=== PATIENT | male | born 1990 | race Caucasian/White ===

== ENCOUNTER 2017-11-11 21:02 | Emergency (ER) | payer OTHER ==
[2017-11-11 21:13] VITALS: BMI 35.2
[2017-11-11 21:16] VITALS: O2SAT 99
--- NOTE | 2017-11-11 21:25 | ED PDOC ---
HPI: General Adult Time Seen by Provider: 11/11/17 21:20 Chief Complaint (Nursing): Bite Chief Complaint (Provider): Dog Bite History Per: Patient History/Exam Limitations: no limitations Onset/Duration Of Symptoms: Hrs (x1) Current Symptoms Are (Timing): Still Present Additional Complaint(s): Alberto Nicholas is a 27 year old male with no past medical history who is presenting to the ED for evaluation of right hand, s/p dog bite that occurred one hour prior to arrival. Patient states that a strangers dog bit him and did not get information regarding the dog. He reports that his last tetanus shot was 4-5 years ago. Patient offers no other medical complaints at this time. PMD: none provided Past Medical History Reviewed: Historical Data, Nursing Documentation, Vital Signs Vital Signs: Last Vital Signs Temp 98 F 11/11/17 23:49 Pulse 70 11/11/17 23:49 Resp 18 11/11/17 23:49 BP 129/78 11/11/17 23:49 Pulse Ox 99 11/12/17 15:03 - Medical History PMH: No Chronic Diseases - Surgical History Surgical History: No Surg Hx - Family History Family History: States: Unknown Family Hx - Home Medications Home Medications: Ambulatory Orders Medication Instructions Recorded Benzonatate [Tessalon Perles] 100 mg PO TID #20 sgl 08/25/17 Cetirizine HCl [Zyrtec] 10 mg PO DAILY #20 capsule 08/25/17 Ibuprofen [Motrin] 600 mg PO Q6H #20 tab 08/25/17 Ciprofloxacin HCl [Cipro] 500 mg PO BID #10 tablet 11/11/17 Clindamycin [Cleocin] 1 tab PO QID #28 cap 11/11/17 - Allergies Allergies/Adverse Reactions: Allergies Allergy/AdvReac Type Severity Reaction Status Date / Time nickel Allergy RASH Verified 11/11/17 21:13 Penicillins Allergy RASH Verified 11/11/17 21:13 shellfish derived Allergy RASH Verified 11/11/17 21:13 Review of Systems ROS Statement: Except As Marked, All Systems Reviewed And Found Negative Musculoskeletal: Positive for: Hand Pain (dog bite to right hand) Physical Exam - Reviewed Nursing Documentation Reviewed: Yes Vital Signs Reviewed: Yes - Physical Exam Appears: Positive for: Well, Non-toxic, No Acute Distress Head Exam: Positive for: ATRAUMATIC, NORMAL INSPECTION, NORMOCEPHALIC Extremity: Positive for: Other (1 cm laceration to MCP of right fifth digit) Neurologic/Psych: Positive for: Alert, Oriented. Negative for: Motor/Sensory Deficits - ECG O2 Sat by Pulse Oximetry: 99 (RA) Pulse Ox Interpretation: Normal - Progress ED Course And Treament: xry of hand: no fx Patient states tetanus up to date cipro 400 mg iv x 1 dose clindamycin 300mg iv x 1 dose Lidocaine 1% 1ml infiltrate sc by wound. Wound cleansed profusely with betadiene/sterile water 250ml RAbies vaccine 1 ml IM x dose ordered but patient refused at time of administration, stating he lied earlier and knows dog. States he did want to get dog in trouble and is aware that dog is vaccinated. Rabies immunoglobin 2000 UI ordered but patient refused. Medical Decision Making Medical Decision Making: Time: 21:21 Plan: --X-Ray Right Hand Scribe Attestation: Documented by Urvashi Fuentes, acting as a scribe for Theresa Chambers PA-C. Provider Scribe Attestation: All medical record entries made by the Scribe were at my direction and personally dictated by me. I have reviewed the chart and agree that the record accurately reflects my personal performance of the history, physical exam, medical decision making, and the department course for this patient. I have also personally directed, reviewed, and agree with the discharge instructions and disposition. Disposition - Clinical Impression Clinical Impression: Dog bite of right hand - Patient ED Disposition Is Patient to be Admitted: No - Disposition Referrals: Sola Torrez MD [Staff Provider] - Disposition: Routine/Home Disposition Time: 22:33 Condition: FAIR Additional Instructions: F/U WITH ED/URGENT CARE/PMD IN 2 DAYS FOR WOUND CHECK Prescriptions: Ciprofloxacin HCl [Cipro] 500 mg PO BID #10 tablet Clindamycin [Cleocin] 1 tab PO QID #28 cap Instructions: Animal Bites (DC) Procedure: Wound Repair - Time Performed Time Performed: 22:17 - Time Out Time Out: Site verified - Consent Obtained Consent obtained: Verbal - Performed by Performed by: Mid-level Provider - Indications Indication(s):: Laceration - Location Location:: Right, Hand Shape:: Linear Dimensions Length cm: 1.0cm Depth:: Epidermis - Anesthetic Technique Anesthetic Technique: Local Local/Regional Anesthetic:: Lidocaine 1% - Irrigated Irrigated with ml of normal saline: 250 - Complexity Complexity:: Simple (one layer) - Wound repair method [place]:: Steri-strips - Patient tolerated procedure Patient Tolerated Procedure:: Well
[2017-11-11] MEDS ORDERED: Clindamycin in NS 300 MG/50 ML BAG IV STA (21:30)
[2017-11-11] MEDS ORDERED: Ciprofloxacin 400mg/200ml D5W 400 MG/200 ML BAG IVPB STA (21:31)
[2017-11-11] MEDS ORDERED: Rabies Immune Globulin 150 INTLU/ML VIAL IM ONE ×2 (21:31→22:15)
[2017-11-11] MEDS ORDERED: Ciprofloxacin 400mg/200ml D5W 400 MG/200 ML BAG IVPB ONE (21:59)
[2017-11-11] MEDS ORDERED: Lidocaine 1% Inj (20ml) INFIL ONE (22:03)
[2017-11-11 23:50] VITALS: BP 129/78; PULSE 70; RESP 18; TEMP 98
--- NOTE | 2017-11-12 09:22 | RAD ---
PROCEDURE: Right Hand Radiographs. HISTORY: dog bite COMPARISON: None. FINDINGS: BONES: No acute fracture or destructive bony lesion identified. JOINTS: Normal. No osteoarthritic changes. SOFT TISSUES: Normal. OTHER FINDINGS: None. IMPRESSION: Unremarkable right hand radiographs.
== END 2017-11-11 23:56 | disposition home or self-care (01) ==
LOC: H.ER 21:02
DX: S61.451A Open bite of right hand, initial encounter (principal); W54.0XXA Bitten by dog, initial encounter; Y92.89 Other specified places as the place of occurrence of the external cause; Z88.0 Allergy status to penicillin
CPT/HCPCS: 73130; 96374; 96375; 99282; J0744

== ENCOUNTER 2018-09-22 21:23 | Emergency (ER) | payer MEDICAID, OTHER ==
[2018-09-22 21:32] VITALS: BMI 34.4
[2018-09-22 21:33] VITALS: BP 133/82; RESP 18; TEMP 98.2; O2SAT 99
[2018-09-22] MEDS ORDERED: Naproxen 500 MG TAB PO ONE ×2 (21:56→22:08)
--- NOTE | 2018-09-22 22:01 | ED PDOC ---
HPI: CCC, URI, Sore Throat Time Seen by Provider: 09/22/18 21:35 Chief Complaint (Nursing): ENT Problem History Per: Patient Additional Complaint(s): Pt. states for the past week he's had a sore throat with cough and congestion. Has been taking OTC meds without relief. Further reports this evening he looked inside his throat and his girlfriend noticed "pus" there prompting ED visit. Denies fever, chest pain, SOB, hemoptysis, chills, sick contacts, recent travel. Past Medical History Reviewed: Historical Data, Nursing Documentation, Vital Signs Vital Signs: Last Vital Signs Temp 98.2 F 09/22/18 21:32 Pulse 93 H 09/22/18 21:32 Resp 18 09/22/18 21:32 BP 133/82 09/22/18 21:32 Pulse Ox 99 09/22/18 21:32 - Surgical History Surgical History: No Surg Hx - Family History Family History: States: No Known Family Hx - Home Medications Home Medications: Ambulatory Orders Medication Instructions Recorded Benzonatate [Tessalon Perles] 100 mg PO TID #20 sgl 08/25/17 Cetirizine HCl [Zyrtec] 10 mg PO DAILY #20 capsule 08/25/17 Ibuprofen [Motrin] 600 mg PO Q6H #20 tab 08/25/17 Ciprofloxacin HCl [Cipro] 500 mg PO BID #10 tablet 11/11/17 Clindamycin [Cleocin] 1 tab PO QID #28 cap 11/11/17 Benzonatate [Tessalon Perle] 1 - 2 cap PO Q8 PRN #12 capsule 09/22/18 Fluticasone Propionate [Flonase] 2 spr NS DAILY PRN #1 bottle 09/22/18 - Allergies Allergies/Adverse Reactions: Allergies Allergy/AdvReac Type Severity Reaction Status Date / Time nickel Allergy RASH Verified 09/22/18 21:45 Penicillins Allergy RASH Verified 09/22/18 21:45 shellfish derived Allergy RASH Verified 09/22/18 21:45 Review of Systems ROS Statement: Except As Marked, All Systems Reviewed And Found Negative ENT: Positive for: Nose Congestion, Throat Pain Respiratory: Positive for: Cough Physical Exam - Physical Exam Appears: Positive for: Well, Non-toxic, No Acute Distress Skin: Positive for: Normal Color, Warm. Negative for: Rash Eye Exam: Positive for: EOMI, Normal appearance, PERRL ENT: Positive for: Normal ENT Inspection, TM Is/Are (non-erythematous, non- bulging b/l). Negative for: Pharyngeal Erythema, Tonsillar Exudate, Tonsillar Swelling Neck: Positive for: Normal, Painless ROM, Supple Cardiovascular/Chest: Positive for: Regular Rate, Rhythm Respiratory: Positive for: Normal Breath Sounds. Negative for: Respiratory Distress Gastrointestinal/Abdominal: Positive for: Soft. Negative for: Tenderness, Organomegaly Neurological/Psych: Positive for: Awake, Alert, Oriented (x3) - ECG O2 Sat by Pulse Oximetry: 99 - Progress ED Course And Treament: Rapid strep, naproxen 500mg PO ordered. Pt's girlfriend (at bedside) notes that she no longer notices the pus in pt's throat. Rapid strep: negative. Disposition - Clinical Impression Clinical Impression: URI (upper respiratory infection) - Patient ED Disposition Is Patient to be Admitted: No - Disposition Referrals: [facility] [Outside] [facility] [Outside] Disposition: Routine/Home Disposition Time: 22:35 Condition: IMPROVED Additional Instructions: FOLLOW UP WITH YOUR DOCTOR FOR FURTHER EVALUATION RETURN TO ED IMMEDIATELY IF SYMPTOMS WORSEN MATTHEW HART, thank you for letting us take care of you today. Your provider was Gina Amin MD and you were treated for POSS THROAT INFECTION. The emergency medical care you received today was directed at your acute symptoms. If you were prescribed any medication, please fill it and take as directed. It may take several days for your symptoms to resolve. Return to the Emergency Department if your symptoms worsen, do not improve, or if you have any other problems. Please contact your doctor or call one of the physicians/clinics you have been referred to that are listed on the Patient Visit Information form that is included in your discharge packet. Bring any paperwork you were given at discharge with you along with any medications you are taking to your follow up visit. Our treatment cannot replace ongoing medical care by a primary care provider outside of the emergency department. Thank you for allowing the [facility] team to be part of your care today. If you had an X-Ray or CT scan: A Radiologist will review the ED reading if any change in treatment is needed we will contact you. If you had a blood, urine, or wound culture: It will take several days for the results, if any change in treatment is needed we will contact you. If you had an STI test: It will take 48 hours for the results. Please call after 1 week if you have not heard back. Prescriptions: Benzonatate [Tessalon Perle] 1 - 2 cap PO Q8 PRN #12 capsule PRN Reason: Cough Fluticasone Propionate [Flonase] 2 spr NS DAILY PRN #1 bottle PRN Reason: Allergy Symptoms Instructions: Viral Upper Respiratory Infection, Adult (DC) Forms: POKKT (Slovenian) Print Language: POLISH
[2018-09-22 22:42] VITALS: PULSE 84
== END 2018-09-22 22:41 | disposition home or self-care (01) ==
LOC: H.ER 21:23
DX: J06.9 Acute upper respiratory infection, unspecified (principal)